=== PATIENT | female | born 1995 | race Caucasian/White ===

== ENCOUNTER 2017-05-29 14:09 | Outpatient (CLI) | payer MEDICAID ==
[2017-05-29 14:48] LABS: BILIRUBIN,URINE NEGATIVE (NEGATIVE); PH,URINE 5.5 PH (5.0-7.5)
[2017-05-29 14:51] LABS: BASOPHILS # (AUTO) 0.1 10^3/uL (0.0-0.1); BASOPHILS % (AUTO) 0.6 %; EOSINOPHILS % (AUTO) 0.4 %; HCT - HEMATOCRIT 38.8 % (37.0-47.0); HGB - HEMOGLOBIN 13.2 g/dL (12.0-16.0); LYMPHOCYTES # (AUTO) 1.6 10^3/uL (1.5-3.5); LYMPHOCYTES % (AUTO) 15.4 %; MEAN CORPUSCULAR HEMOGLOBIN 30.3 pg (27.0-31.0); MEAN CORPUSCULAR HGB CONC 33.9 g/dL (32.0-36.0); MEAN CORPUSCULAR VOLUME 89.3 fL (81.0-99.0); MONOCYTES # (AUTO) 0.5 10^3/uL (0.0-1.0); MONOCYTES % (AUTO) 4.6 %; NEUTROPHILS # (AUTO) 8.4 10^3/uL (1.5-6.6); RED BLOOD COUNT 4.34 10^6/uL (4.20-5.40); RED CELL DISTRIBUTION WIDTH 15.4 % (12.0-15.0); UNCORRECTED WHITE BLOOD COUNT 10.7 x10^3/uL; WHITE BLOOD COUNT 10.7 x10^3/uL (4.8-10.8)
[2017-05-29 15:15] LABS: WBC,URINE 0-3 /HPF (0-5)
== END 2017-05-29 14:10 | disposition home or self-care (01) ==
LOC: LAB 14:09
PROVIDERS: ATTEND Obstetrics & Gynecology
DX: Z36 Encounter for antenatal screening of mother (principal)
CPT/HCPCS: 36415; 81001; 85025; 86762; 86780; 86850; 86900; 86901; 87340; 87389

== ENCOUNTER 2017-08-14 12:23 | Outpatient (CLI) | payer MEDICAID ==
--- NOTE | 2017-08-14 16:16 | Ultrasound Report ---
OB ULTRASOUND: 08/14/2017 CLINICAL INDICATION: anatomy. TECHNIQUE: Real-time scanning was performed with insurance account representative static images obtained. LAST MENSTRUAL PERIOD 03/26/2017 Clinical Age 20 weeks 1 day US Age 20 weeks 4 days EFW Hadlock 357 g EFW% Hadlock 65% Heart Rate 157 bpm EDC 12/31/2017 US EDC 12/28/2017 BPD Hadlock 20 weeks 4 days; Mean mm 48.2 HC Hadlock 20 weeks 3 days; Mean mm 180.0 AC Hadlock 20 weeks 1 day; Mean mm 149.0 FL Hadlock 20 weeks 6 days; Mean mm 34.5 Presentation --- Placental Location posterior Cervical Length 4.0 cm Amniotic Fluid 5.0 cm FINDINGS: There is a single viable intrauterine gestation, in cephalic presentation. heart rate is 157 BPM. Amniotic fluid volume appears normal. The placenta is posterior, and there is either a marginal or velamentous cord insertion present. This should be reevaluated in the third trimester. By size, the fetus measures 20 weeks 3 days (20 weeks 1 day by LMP). The following anatomic structures were visualized and appear normal: The intracranial contents, including the ventricles and posterior fossa; the lips and orbits; the spine; the heart, including 4 chamber view and outflow tracts, and diaphragm; the abdominal contents, including the stomach, the bilateral kidneys, and urinary bladder, as well as a normal 3 vessel cord insertion; 4 limbs. There is a possible bicornuate configuration of the uterus, with a possible compressed horn seen in the left side of the uterus. The ovaries appear unremarkable. No free fluid is present. IMPRESSION 1. SINGLE VIABLE INTRAUTERINE GESTATION, WITH SIZE IN KEEPING WITH LMP DATING. NORMAL ANATOMIC SURVEY. 2. POSSIBLE MARGINAL OR VELAMENTOUS CORD INSERTION. THIS SHOULD BE REEVALUATED IN THE THIRD TRIMESTER. 3. POSSIBLE BICORNUATE UTERUS, WITH A COMPRESSED ENDOMETRIAL HORN SEEN ON THE LEFT SIDE OF THE UTERUS. MTDD
== END 2017-08-14 12:24 | disposition home or self-care (01) ==
LOC: DI 12:23
PROVIDERS: ATTEND Obstetrics & Gynecology
DX: Z36 Encounter for antenatal screening of mother (principal)
CPT/HCPCS: 76811

== ENCOUNTER 2017-11-17 14:26 | Outpatient (CLI) | payer MEDICAID ==
--- NOTE | 2017-11-20 17:22 | Ultrasound Report ---
EXAM: FOLLOW-UP OBSTETRICAL ULTRASOUND EXAM DATE: 11/17/2017 04:15 PM. CLINICAL HISTORY: History of marginal or velamentous cord insertion. GIANCARLO 12/31/2017 (34-4/7 weeks). COMPARISON: 08/14/2017. TECHNIQUE: Real-time sonographic evaluation of the fetus performed by the patient insurance clerk. Multiple repre sentative static images were saved for review. DATING: Established EGA 34-4/7 weeks with GIANCARLO 12/31/2017 based on LMP. EGA 34-1/7 weeks with GIANCARLO 12/28/2017 based on prior ultrasound. EGA 32-3/7 weeks with GIANCARLO 01/09/2018 based on the current ultrasound. GENERAL EVALUATION Stein . Cardiac activity: 142 bpm. movement: Visualized. Presentation: Cephalic. Placenta: Posterior. Unchanged probable superior marginal than velamentous cord insertion, grossly un changed. Amniotic fluid: Normal. KEYONNA 13.6 cm (MVP 4.2). BIOMETRY Bi-Parietal Diameter (BPD): 8.0 cm, 32-1/7 weeks. Head Circumference (HC): 28.9 cm, 31-6/7 weeks. Abdominal Circumference (AC): 29.2 cm, 33-2/7 weeks. Femur Length (FL): 6.3 cm, 32-6/7 weeks. Current composite sonographic age: 32-3/7 weeks, GIANCARLO 01/09/2018. Expected gestational age on established GIANCARLO: 34-4/7 weeks, GIANCARLO 12/31/2017. Estimated Weight: 2075 gm, 38.9th percentile for 34-4/7 weeks. ANATOMY Not specifically evaluated on this exam. No gross anatomic abnormality evident. MATERNAL STRUCTURES Cervix: Long and closed. Transabdominal length 4.2 cm. IMPRESSION: 1. Live stein with current composite sonographic age of 32-3/7 weeks, compared to expec christina gestational age of 34-4/7 weeks based on established GIANCARLO of 12/31/2017. 2. size is within normal limits, EFW at the 39th percentile. 3. Posterior placenta with similar probable superior marginal (than velamentous) cord insertion. TALA Referring Provider Line: [phone] SITE ID: [id number]
== END 2017-11-17 14:27 | disposition home or self-care (01) ==
LOC: DI 14:26
PROVIDERS: ATTEND Obstetrics & Gynecology
DX: Z36.2 Encounter for other antenatal screening follow-up (principal)
CPT/HCPCS: 76816

== ENCOUNTER 2017-12-06 15:10 | Outpatient (CLI) | payer MEDICAID | END 2017-12-06 15:11 | disposition home or self-care (01) | LOC: LAB.R 15:10 | PROVIDERS: ATTEND Obstetrics & Gynecology | DX: Z36.85 Encounter for antenatal screening for Streptococcus B (principal) | CPT/HCPCS: 87797 ==

== ENCOUNTER 2017-12-07 08:54 | Outpatient (CLI) | payer MEDICAID ==
[2017-12-07 09:15] VITALS: BP 124/80
== END 2017-12-07 10:35 | disposition home or self-care (01) ==
LOC: WFO 08:54 → FBP 08:55 → WFO 10:35
PROVIDERS: ATTEND Obstetrics & Gynecology
DX: Z34.03 Encounter for supervision of normal first pregnancy, third trimester (principal)
CPT/HCPCS: 99213

== ENCOUNTER 2017-12-23 21:40 | Outpatient (CLI) | payer MEDICAID ==
[2017-12-23 22:14] VITALS: BP 130/84
== END 2017-12-23 22:45 | disposition home or self-care (01) ==
LOC: WFO 21:40 → FBP 21:41 → WFO 22:45
PROVIDERS: ATTEND Obstetrics & Gynecology
DX: O47.1 False labor at or after 37 completed weeks of gestation (principal); Z3A.39 39 weeks gestation of pregnancy
CPT/HCPCS: 99212

== ENCOUNTER 2017-12-24 02:06 | Inpatient (IN) | payer MEDICAID ==
[2017-12-24] MEDS ORDERED: PENICILLIN G POTASSIUM 5,000,000 UNIT in SODIUM CHLORIDE 0.9% MINIBAG 100 ML IV ONE (03:36)
[2017-12-24] MEDS ORDERED: SODIUM CHLORIDE FLUSH 0.9% 10 ML SYRINGE IVP PRN (03:36)
[2017-12-24] MEDS ORDERED: ONDANSETRON 4 MG/2 ML VIAL IVP PRN (03:36)
[2017-12-24] MEDS ORDERED: OXYTOCIN/SODIUM CHLORIDE 250 ML IV ONE ×2 (03:57→05:45)
[2017-12-24] MEDS ORDERED: LACTATED RINGERS 1,000 ML IV SCH (04:00)
[2017-12-24 04:31] LABS: BASOPHILS # (AUTO) 0.1 10^3/uL (0.0-0.1); BASOPHILS % (AUTO) 0.4 %; EOSINOPHILS # (AUTO) 0.1 10^3/uL (0.0-0.7); EOSINOPHILS % (AUTO) 0.4 %; HGB - HEMOGLOBIN 11.1 g/dL (12.0-16.0); LYMPHOCYTES # (AUTO) 1.4 10^3/uL (1.5-3.5); LYMPHOCYTES % (AUTO) 8.3 %; MEAN CORPUSCULAR HEMOGLOBIN 28.1 pg (27.0-31.0); MEAN CORPUSCULAR HGB CONC 33.9 g/dL (32.0-36.0); MEAN CORPUSCULAR VOLUME 82.8 fL (81.0-99.0); MEAN PLATELET VOLUME 8.4 fL (7.9-10.8); MONOCYTES # (AUTO) 0.6 10^3/uL (0.0-1.0); MONOCYTES % (AUTO) 3.6 %; NEUTROPHILS # (AUTO) 15.1 10^3/uL (1.5-6.6); NEUTROPHILS % (AUTO) 87.3 %; PLT - PLATELET COUNT 335 10^3/uL (130-450); RED BLOOD COUNT 3.96 10^6/uL (4.20-5.40); RED CELL DISTRIBUTION WIDTH 14.2 % (12.0-15.0); WHITE BLOOD COUNT 17.2 x10^3/uL (4.8-10.8)
[2017-12-24] MEDS: fentaNYL 100 MCG/2 ML VIAL IVP PRN ×2 (04:39→05:31)
[2017-12-24] MEDS: LACTATED RINGERS 1,000 ML IV SCH (05:00)
[2017-12-24] MEDS ORDERED: fentaNYL 100 MCG/2 ML VIAL IVP ONE (05:30)
[2017-12-24] MEDS ORDERED: LIDOCAINE 1% 50 ML MDV ONE (05:42)
[2017-12-24] MEDS ORDERED: HYDROcod/ACETAM 5/325 MG TABLET PO PRN (05:45)
[2017-12-24] MEDS ORDERED: diphenhydrAMINE 25 MG CAPSULE PO PRN (05:45)
[2017-12-24] MEDS ORDERED: WITCH HAZEL/GLYCERIN 1 EACH MED..PAD TOP PRN (05:45)
[2017-12-24] MEDS ORDERED: HYDROCORTISONE/PRAMOXINE 10 GM PR PRN (05:45)
[2017-12-24] MEDS ORDERED: ZOLPIDEM 5 MG TABLET PO PRN (05:45)
[2017-12-24] MEDS ORDERED: LIDOCAINE 1% 50 ML MDV TD ONE (05:45)
--- NOTE | 2017-12-24 05:50 | DELIVERY NOTE ---
Delivery Note - Labor Labor: positive: Spontaneous - Delivery Method Delivery Method: positive: Spontaneous vaginal delivery - Presentation Presentation: positive: Vertex - Nuchal Cord Nuchal Cord: positive: Present - Anesthetic Anesthetic Type: Anesthetic: positive: Lidocaine - 1% plain Volume: positive: 5cc - Amniotic Fluid Description Amniotic Fluid Description: positive: Clear - Episiotomy Type Episiotomy Type: positive: None - Laceration Laceration: positive: 2nd degree - Suture Suture Type: positive: Vicryl Suture Size: positive: 3-0 - Delivery Outcome Delivery Outcome: positive: Livebirth - Broussard : positive: Bulb syringe, Stimulated, Warmed sex: positive: Female - Cord Cord: positive: 3 vessels - Placenta Placenta: positive: Intact, Manual removal, Other (Marginal Cord Insert, Small Placenta) - Post Delivery Events Post Delivery Events: positive: No post delivery events - Delivery Comments (Free Text/Narrative) Delivery Comments (Free Text/Narrative): Living Female wgt 6 lbs 3.4oz & Apgars 8/9
[2017-12-24] MEDS ORDERED: IBUPROFEN 600 MG TABLET PO SCH (06:00)
--- NOTE | 2017-12-24 07:21 | HISTORY & PHYSICAL EXAMINATION ---
DATE OF SERVICE: 12/24/2017 Physician: Xavi Acuna MD DATE OF ADMISSION: 12/24/2017 HISTORY OF PRESENT ILLNESS: The patient is a 22-year-old , primigravida at 38 weeks and 6 days gestation, who presents with suspicion of leaking membranes. Initial examination confirms ruptured membranes with a cervix of 3 cm and 80% effaced, -1 station. Amniotic fluid was noted as clear. Membrane rupture occurred at roughly 3 a.m. She had previously been seen earlier in the evening for suspected labor. She is GBS positive. The is remarkable for known velamentous cord insertion and bicornuate uterus. LABORATORY: Blood type of Rh positive, rubella immune, RPR negative, hep B negative, HIV negative. Glucola challenge test normal. GBS positive. PAST MEDICAL HISTORY: No chronic disease history. PAST SURGICAL HISTORY: No surgical history. ALLERGIES: NONE. MEDICATIONS: vitamins with iron. FAMILY HISTORY: No inheritable diseases, chromosome anomalies, or defects. SOCIAL HISTORY: Unmarried, stable relationship. No drug, tobacco or alcohol use. REVIEW OF SYSTEMS CONSTITUTIONAL: Negative. HEENT: Negative. CARDIAC: Negative. LUNGS: Negative. BREASTS: Negative. GI: Negative. : Negative. Reference history as well. MUSCULOSKELETAL: Negative. NEURO: Negative. DERMATOLOGIC: Negative. PHYSICAL EXAMINATION GENERAL: The patient uncomfortable with labor pains. HEENT: Moist membranes. NECK: Supple. No thyromegaly. LUNGS: Clear to auscultation. CARDIOVASCULAR: Regular. No murmur. No gallop. BREASTS: No mass, full. ABDOMEN: No organomegaly. No tenderness. UTERUS: Consistent size, palpable moderate contractions every 2-3 minutes. EXTERNAL HEART TRACING: Category 1, however, there are occasional early decels and variable. EXTERNAL GENITALIA: No lesions. CERVIX: 3 cm, 80%, -1 to 0. EXTREMITIES: Nonedematous. Range of motion normal x4. NEUROLOGIC: Grossly intact. SKIN: No obvious rash. Decorative tattoos. LABORATORY DATA: Hemoglobin 11.1, white count 17.2, platelets 335. ASSESSMENT: This is a term in latent phase of labor. Evident rupture of membranes and GBS positive. There are some concerns about cord implantation and the length of the cord. PLAN 1. Bolus IV fluids and prepare for epidural. Epidural will help control the delivery. 2. Begin GBS prophylaxis. 3. Depending on delivery events, cord may need to be clamped and cut on the perineum. Patient has marginal cord insertion; however, there are no concerning changes on the heart tracing. TD: 12/24/2017 07:17 MTDAureliano
[2017-12-24] MEDS: SODIUM CHLORIDE FLUSH 0.9% 10 ML SYRINGE IVP SCH ×2 (07:37→13:14)
[2017-12-24] MEDS: IBUPROFEN 100 MG/5 ML UDC PO PRN ×2 (08:19→16:37)
[2017-12-24] MEDS: DOCUSATE SODIUM 100 MG CAPSULE PO SCH (08:19)
[2017-12-24] MEDS: ACETAMINOPHEN 325 MG TABLET PO SCH ×2 (08:35→15:21)
[2017-12-25] MEDS: IBUPROFEN 100 MG/5 ML UDC PO PRN ×4 (00:28→20:57)
[2017-12-25] MEDS: DOCUSATE SODIUM 100 MG CAPSULE PO SCH ×3 (00:29→20:57)
[2017-12-25] MEDS: LACTATED RINGERS 1,000 ML IV SCH ×3 (20:55→21:08)
[2017-12-25] MEDS: SODIUM CHLORIDE FLUSH 0.9% 10 ML SYRINGE IVP SCH ×3 (20:56→21:08)
[2017-12-25] MEDS: ACETAMINOPHEN 325 MG TABLET PO SCH ×5 (21:05→21:15)
[2017-12-26] MEDS: SODIUM CHLORIDE FLUSH 0.9% 10 ML SYRINGE IVP SCH ×2 (01:27→07:06)
[2017-12-26] MEDS: LACTATED RINGERS 1,000 ML IV SCH (01:27)
[2017-12-26] MEDS: IBUPROFEN 100 MG/5 ML UDC PO PRN ×2 (03:00→08:16)
[2017-12-26] MEDS: ACETAMINOPHEN 325 MG TABLET PO SCH (04:07)
[2017-12-26] MEDS: DOCUSATE SODIUM 100 MG CAPSULE PO SCH (08:16)
[2017-12-26 08:52] VITALS: BP 118/76
--- NOTE | 2017-12-26 09:02 | PROCEDURE REPORT ---
DATE OF SERVICE: Physician: Xavi Acuna MD DATE OF PROCEDURE: 12/24/2017 PREDELIVERY DIAGNOSES 1. Spontaneous labor with ruptured membranes. 2. Term at 38 weeks. 3. Group B strep positive. 4. Velamentous cord insertion. 5. Bicornuate uterus. POSTDELIVERY DIAGNOSES 1. Spontaneous labor with ruptured membranes. 2. Term at 38 weeks. 3. Group B strep positive. 4. Velamentous cord insertion. 5. Bicornuate uterus. 6. Nuchal cord and marginal cord insertion. 7. Rapid labor. PROCEDURE: Manual assisted vaginal delivery over intact perineum with minor midline laceration repair. BRICKLAYER APPRENTICE: Xavi Acuna MD, FACOG, [facility] COMPLICATIONS: None. ESTIMATED BLOOD LOSS: 250-300. DRAINS: None. FINDINGS: At 0512 hours, a living female infant was born weighing 6 pounds and 3 ounces, scoring Apgars of 6 and 9. There were no obvious congenital anomalies or trauma. The placenta was delivered by manual extraction due to the cord spontaneously severing after . The placenta was delivered intact. The cord was a 3-vessel orientation and wrapped tightly around the head x1. The cord was of a normal length. There is no evidence of abruption, infection, or meconium. Inspection of the female genital tract finds the cervix intact and the vulva intact. There is a shallow midline laceration in the vagina for a distance of 3 cm, grade 2. TECHNIQUE: Patient rapidly advanced from 3 cm to complete by 5 a.m. Patient began to involuntarily push and the head moved towards . There was a controlled delivery of the head using push and stretch technique. Patient was cooperative. The shoulders were delivered without difficulty, and the cord was not short as previously suspected on ultrasound. The was placed on the maternal abdomen for warming. After the cord stopped pulsations, it was doubly clamped and transected. Cord blood sample was sent. We waited for the placenta and there was extension of the cord, but none of the usual arising of the uterus in the abdomen. It became evident that the marginal cord had severed and was stuck within the membranes. A 100 mcg of fentanyl were given to help the patient relax. The six color press operator inserted his left hand, located the placenta and through gentle finger curettage, was able to separate it from the uterine wall and extract it intact. This procedure was well tolerated. After delivery, the genital tract was inspected and a 3 cm shallow midline vaginal laceration was discovered. We injected 5 mL of lidocaine 1% and the laceration uneventfully closed with 3-0 Vicryl. Mother, father, and baby all bonded well. Patient immediately began to nurse without difficulty. At termination of the procedure, all sponge, needle and instrument counts were confirmed as correct. TD: 12/24/2017 06:38 [facility]
--- NOTE | 2017-12-26 09:23 | Discharge Plan ---
Discharge Plan Disposition: 01 Home, Self Care Condition: Good Diet: Regular Shower Restrictions: No Driving Restrictions: No No Smoking: If you smoke, Please STOP! Call for help. Follow-up with: Xavi Acuna MD [Provider Admit Priv/Credential] -
--- NOTE | 2017-12-26 11:26 | Labor Flowsheet ---
Labor Flowsheet Datetime Report Generated by CPN: 12/26/2017 11:26 Datetime: 12/25/2017 10:13 Pulse: 104 SpO2 (%): 99 LaborFlag: Labor Datetime: 12/25/2017 10:06 VITAL SIGNS NBP Sys/Liza/Mean (mmHg): 107 : 65 : 79 Datetime: 12/24/2017 08:01 COMMUNICATION Communication: this patient is not Gladis Crispin. Wrongly recording under her name. Datetime: 12/24/2017 05:05 UTERINE ACTIVITY Monitor Mode: External Frequency (min): 2 Quality: Strong (Annotations: pushing involuntarily, unable to pant through them. head visible with contractions.) Duration (sec): 90 Pattern: Normal: <= 5 Contractions in 10 Minutes Resting Tone (Palpate): Relaxed ASSESSMENT A Monitor Mode: External US FHR Baseline Rate : 140 FHR Baseline Changes: No Baseline Change Variability: Moderate 6-25 bpm Accelerations: 15X15 Decelerations: Variable Category: Category II VAGINAL EXAM Dilatation (cm): 10.0 Effacement (%): 100 Station: 3 Exam by: [email or web address] (Annotations: pushing involuntarily, enc to pant/breathe through contraction s. repositioned to left side and hob lowered. ) Datetime: 12/24/2017 04:50 Monitor Interventions for UA: [place] Adjusted Actions for Decelerations: IV Bolus; Sterile Vaginal Exam (Annotations: o2 via mask) Datetime: 12/24/2017 04:35 Membranes Ruptured Date/Time: 12/24/2017 03:20 Membranes Rupture Method: Spontaneous Amniotic Fluid Color: Clear Amniotic Fluid Amount: Moderate Amniotic Fluid Odor: Normal Vaginal Bleeding: Normal Show Datetime: 12/24/2017 04:30 Stage of : Labor Datetime: 12/24/2017 04:00 Contraction Comments: pt breathing well through contractions
== END 2017-12-26 11:15 | disposition home or self-care (01) | DRG 775 ==
LOC: WFO 02:06 → FBP 02:07 → WFO 03:34 → FBP 03:36
PROVIDERS: ADMIT Obstetrics & Gynecology; ATTEND Obstetrics & Gynecology
PROC: 10E0XZZ Delivery of Products of Conception, External Approach (ICD-10-PCS; principal; 2017-12-24)
PROC: 0UQG7ZZ Repair Vagina, Via Natural or Artificial Opening (ICD-10-PCS; 2017-12-24)
DX: O34.03 Maternal care for unspecified congenital malformation of uterus, third trimester (principal); O71.4 Obstetric high vaginal laceration alone; O43.123 Velamentous insertion of umbilical cord, third trimester; O99.824 Streptococcus B carrier state complicating childbirth; O62.3 Precipitate labor; O69.81X0 Labor and delivery complicated by cord around neck, without compression, not applicable or unspecified; Q51.3 Bicornate uterus; Z37.0 Single live birth; Z3A.38 38 weeks gestation of pregnancy
CPT/HCPCS: 85025; 99213

== ENCOUNTER 2019-12-02 09:02 | Outpatient (CLI) | payer MEDICAID | END 2019-12-02 09:03 | disposition EMS.NT | LOC: EMS 09:02 | PROVIDERS: ATTEND Surgery | DX: R00.0 Tachycardia, unspecified (principal); F41.9 Anxiety disorder, unspecified ==

== ENCOUNTER 2021-01-13 09:26 | Outpatient (CLI) | payer MEDICAID | END 2021-01-13 09:27 | disposition EMS.NT | LOC: EMS 09:26 | DX: R00.2 Palpitations (principal); F41.9 Anxiety disorder, unspecified ==

== ENCOUNTER 2021-02-08 08:00 | Outpatient (CLI) | payer MEDICAID ==
[2021-02-08 15:56] LABS: BILIRUBIN,URINE NEGATIVE (NEGATIVE); GLUCOSE, URINE (UA) NEGATIVE (NEGATIVE); KETONES,URINE (UA) NEGATIVE (NEGATIVE); LEUKOCYTE ESTERASE, URINE TRACE (NEGATIVE); NITRITE,URINE NEGATIVE (NEGATIVE); OCCULT BLOOD,URINE NEGATIVE (NEGATIVE); PH,URINE 6.5 PH (5.0-7.5); PROTEIN,URINE NEGATIVE (NEGATIVE); UROBILINOGEN,URINE 0.2 (NORMAL) E.U./dL (NORMAL)
[2021-02-08 15:57] LABS: CLARITY,URINE CLEAR (CLEAR)
[2021-02-08 16:11] LABS: BACTERIA,URINE Rare /HPF (None Seen); RBC,URINE None Seen /HPF (0-5); SQUAMOUS EPITHELIAL CELL,UR FEW Squamous (<= Few); WBC,URINE 0-3 /HPF (0-5)
== END 2021-02-08 23:59 | disposition home or self-care (01) ==
LOC: LAB.R 08:00
PROVIDERS: ATTEND Nurse Practitioner Obstetrics & Gynecology
DX: Z32.01 Encounter for pregnancy test, result positive (principal)
CPT/HCPCS: 81001; 87086

== ENCOUNTER 2021-02-15 14:49 | Outpatient (CLI) | payer MEDICAID ==
--- NOTE | 2021-02-16 17:16 | Ultrasound Report ---
PROCEDURE: OB First Trimester w/TV INDICATIONS: POSITIVE TEST OUTSIDE/PRIOR DATING DATA: Last menstrual period (LMP): 12/24/2020. LMP-based estimated date of delivery (GIANCARLO): 09/30/2021. First dating scan (date and location): 02/15/2021. Estimated date of delivery (GIANCARLO) from first dating scan: 09/24/2021. TECHNIQUE: Real-time scanning was performed of the fetus and maternal pelvic organs, with image documentation. Endovaginal scanning was also performed to better visualize the fetus and maternal ovaries. COMPARISON: None. FINDINGS: Embryo: Single living intrauterine gestation with an estimated sonographic gestational age of approx imately 8 weeks and 3 days based off crown-rump length measurement of approximately 1.9 cm. Estimated gestational age based off mean gestational sac diameter is approximately 8 weeks and 1 day. he art rate measured 177 bpm. Small bilateral uterine perigestational hemorrhages are noted. On the righ t it measures 1.6 x 1.1 x 2.5 cm. On the left it measures 1.6 x 0.6 x 2.3 cm. Normal yolk sac is seen . Measurement variability in dating: +/- 4 weeks by LMP, +/- 7 days by mean sac diameter (use before 6 weeks gestation if crown-rump length not able to be measured), +/- 5 days by crown-rump length (6-12 weeks gestation). Maternal organs: Ovaries demonstrates presence of a left corpus luteal cyst. There is appearance of bicornuate uterine morphology with the is noted within the left uterine horn. Cervical wesley th appears visibly adequate closed. Kidneys are unremarkable without evidence for hydronephrosis. . IMPRESSION: Single living intrauterine gestation with an estimated sonographic gestational age of approximately 8 weeks and 3 days. This correlates with an GIANCARLO of 09/24/2021. Bicornuate uterine morphology with the intrauterine visualized within the left uterine horn . Small bilateral perigestational hemorrhages. Reviewed by: Zach Nathan MD on 02/16/2021 5:15 PM PDT Approved by: Zach Nathan MD on 02/16/2021 5:15 PM PDT Station ID: [id number]
== END 2021-02-15 14:50 | disposition home or self-care (01) ==
LOC: DI 14:49
PROVIDERS: ATTEND Advanced Practice Midwife
DX: O20.8 Other hemorrhage in early pregnancy (principal); Z3A.08 8 weeks gestation of pregnancy

== ENCOUNTER 2021-03-22 10:23 | Outpatient (CLI) | payer MEDICAID ==
[2021-03-22 11:17] LABS: BASOPHILS % (AUTO) 0.4 %; EOSINOPHILS # (AUTO) 0.1 10^3/uL (0.0-0.7); HGB - HEMOGLOBIN 11.5 g/dL (12.0-16.0); LYMPHOCYTES # (AUTO) 1.8 10^3/uL (1.5-3.5); LYMPHOCYTES % (AUTO) 25.4 %; MEAN CORPUSCULAR HEMOGLOBIN 30.2 pg (27.0-31.0); MEAN CORPUSCULAR HGB CONC 33.8 g/dL (32.0-36.0); MEAN CORPUSCULAR VOLUME 89.2 fL (81.0-99.0); MONOCYTES # (AUTO) 0.3 10^3/uL (0.0-1.0); MONOCYTES % (AUTO) 4.9 %; NEUTROPHILS # (AUTO) 4.7 10^3/uL (1.5-6.6); NEUTROPHILS % (AUTO) 67.9 %; PLT - PLATELET COUNT 252 10^3/uL (130-450); RED BLOOD COUNT 3.81 10^6/uL (4.20-5.40); RED CELL DISTRIBUTION WIDTH 13.9 % (12.0-15.0)
[2021-03-23 12:32] LABS: HEPATITIS B SURFACE ANTIGEN NON-REACTIVE (NON-REACTIVE)
[2021-03-23 12:46] LABS: HEPATITIS C ANTIBODY NON-REACTIVE (NON-REACTIVE)
[2021-03-23 15:06] LABS: HIV AG/AB 4TH GEN NON-REACTIVE (NON-REACTIVE)
== END 2021-03-22 10:24 | disposition home or self-care (01) ==
LOC: LAB 10:23
PROVIDERS: ATTEND Advanced Practice Midwife
DX: Z34.90 Encounter for supervision of normal pregnancy, unspecified, unspecified trimester (principal); Z36.89 Encounter for other specified antenatal screening
CPT/HCPCS: 36415; 85025; 86592; 86762; 86787; 86803; 86850; 86900; 86901; 87340; 87389

== ENCOUNTER 2021-05-07 13:43 | Outpatient (CLI) | payer MEDICAID ==
--- NOTE | 2021-05-07 17:24 | Ultrasound Report ---
PROCEDURE: OB Detailed Eval INDICATIONS: SUPERVISION OF NORMAL OUTSIDE/PRIOR DATING DATA: Last menstrual period (LMP): 12/24/2020. LMP-based estimated date of delivery (GIANCARLO): 09/30/2021. First dating scan (date and location): 02/15/2021. Estimated date of delivery (GIANCARLO) from first dating scan: 09/24/2021. The below data below was generated using the first trimester ultrasound GIANCARLO of 09/24/2021 TECHNIQUE: Real-time scanning was performed of the fetus, with image documentation and biometric measurements. Endovaginal scanning: Not performed COMPARISON: 02/15/2021 FINDINGS: General: A single living intrauterine gestation is present. Presentation: Breech Placenta: Placental position is fundal, without previa. Amniotic fluid index: 13.6 cm, normal for gestational age. heart rate: 152 beats per minute. Maternal cervical canal: 3.6 cm long; normal length is 2.5 cm or more. biometrics: Biparietal diameter: 4.9 cm, 20 weeks, 5 days Head circumference: 17.6 cm, 20 weeks, 1 day Abdominal circumference: 16.0 cm, 21 weeks, 1 day Femur length: 3.1 cm, 19 weeks, 4 days Estimated gestational age from initial scan: 20 weeks, 0 days. Composite gestational age from present scan: 20 weeks, 2 days Estimated weight and percentile: 349 g, 67th percentile Measurement variability in biometric dating: +/- 10 days from 12-20 weeks gestation, +/- 2 weeks from 20-30 weeks gestation, +/- 3 weeks at 30 weeks gestation or later. Anatomic survey: Neuro: Ventricles are normal at less than 10 mm. Cisterna magna is normal at 3-11 mm. Cerebellum i s normal in size and morphology. Nuchal skin fold: Normal at less than 6 mm between 14 and 20 weeks gestational age. Face: Nose and lips, facial profile are normal. Spine: No evidence for spina bifida. Heart: 4-chambered heart is present, with normal ventricular outflow tracts. Diaphragm: Diaphragm is intact. Stomach: Left-sided stomach is present. Kidneys: No hydronephrosis. Normal is less than 5 mm in 2nd trimester, less than 7 mm in 3rd trimester. Cord: 3 vessel cord has orthotopic insertion. There is a marginal cord insertion is seen posterior and right along the placental edge. Bladder: Normal in size. Extremities: All 4 extremities are visualized. IMPRESSION: 1. Single live intrauterine with appropriate growth since the prior study. 2. Normal anatomy. 3. Marginal placental cord insertion. Follow-up suggested in third trimester. Reviewed by: Tiffany Mendez MD on 05/07/2021 5:23 PM PDT Approved by: Tiffany Mendez MD on 05/07/2021 5:23 PM PDT Station ID: [id number]
== END 2021-05-07 13:44 | disposition home or self-care (01) ==
LOC: DI 13:43
PROVIDERS: ATTEND Advanced Practice Midwife
DX: Z34.00 Encounter for supervision of normal first pregnancy, unspecified trimester (principal)

== ENCOUNTER 2021-06-23 09:06 | Outpatient (CLI) | payer MEDICAID ==
[2021-06-23 10:53] LABS: HCT - HEMATOCRIT 32.5 % (37.0-47.0); HGB - HEMOGLOBIN 10.5 g/dL (12.0-16.0); MEAN CORPUSCULAR HEMOGLOBIN 29.7 pg (27.0-31.0); MEAN CORPUSCULAR HGB CONC 32.3 g/dL (32.0-36.0); MEAN CORPUSCULAR VOLUME 91.8 fL (81.0-99.0); MEAN PLATELET VOLUME 9.1 fL (7.9-10.8); RED BLOOD COUNT 3.54 10^6/uL (4.20-5.40); RED CELL DISTRIBUTION WIDTH 12.9 % (12.0-15.0); WHITE BLOOD COUNT 11.4 x10^3/uL (4.8-10.8)
== END 2021-06-23 09:07 | disposition home or self-care (01) ==
LOC: LAB 09:06
PROVIDERS: ATTEND Nurse Practitioner Obstetrics & Gynecology
DX: Z34.90 Encounter for supervision of normal pregnancy, unspecified, unspecified trimester (principal); Z36.89 Encounter for other specified antenatal screening
CPT/HCPCS: 36415; 82950; 85027

== ENCOUNTER 2021-07-07 09:33 | Outpatient (CLI) | payer MEDICAID ==
[2021-07-07 11:04] VITALS: BP 114/66
--- NOTE | 2021-07-07 17:51 | PROCEDURE REPORT ---
- HPI Current EDU 09/24/21 Gestation 28 Weeks and 5 Days 2 Para 1 Vital Signs Temperature 37.2 C 07/07/21 09:48 Heart Rate 97 07/07/21 09:48 Respiratory Rate 20 07/07/21 09:48 Blood Pressure 114/66 07/07/21 09:48 O2 Saturation 100 07/07/21 09:48 Temperature 37.2 C 07/07/21 09:48 Heart Rate 97 07/07/21 09:48 Respiratory Rate 20 07/07/21 09:48 Blood Pressure 114/66 07/07/21 09:48 O2 Saturation 100 07/07/21 09:48 - NST Procedure NST Procedure Start Date 07/07/21 Start Time 09:41 Stop Time 10:07 Vibroacoustic Stimulation Used No - Results and Plan Findings/Impression: Gladis presents to [facility] for NST secondary to elevated heart rate of 177bpm in the office at routine visit. NST performed 07/07/2021 NST read 07/07/2021 NST reactive. FHR baseline 145, moderate variability, + accels, no decels Encouraged pt to increase fluid intake. Pt verbalized understanding and agrees to above plan. She denies further questions or concerns at this time. FINAL DIAGNOSIS: tachycardia - resolved.
== END 2021-07-07 10:15 | disposition home or self-care (01) ==
LOC: WFO 09:33 → FBP 09:37 → WFO 10:15
PROVIDERS: ATTEND Nurse Practitioner Obstetrics & Gynecology
DX: O36.8330 Maternal care for abnormalities of the fetal heart rate or rhythm, third trimester, not applicable or unspecified (principal); Z3A.28 28 weeks gestation of pregnancy
CPT/HCPCS: 59025

== ENCOUNTER 2021-07-18 08:24 | Outpatient (CLI) | payer MEDICAID ==
--- NOTE | 2021-07-18 15:05 | Ultrasound Report ---
PROCEDURE: OB F/U or Repeat INDICATIONS: SUPERVISION OF OUTSIDE/PRIOR DATING DATA: Last menstrual period (LMP): 12/24/2020. LMP-based estimated date of delivery (GIANCARLO): 09/30/2021. First dating scan (date): 02/15/2021 Estimated date of delivery (GIANCARLO) from first dating scan: 09/24/2021. The below data below was generated using the first trimester scan GIANCARLO of 09/24/2021 TECHNIQUE: Real-time scanning was performed of the fetus, with image documentation and biometric measurements. Endovaginal scanning: Not performed COMPARISON: None. FINDINGS: General: A single living intrauterine gestation is present. Presentation: Breech Placenta: Placental position is anterior fundal, without previa. Placental insertion of the umbilic al cord is along the superior margin approximately 2.2 cm from its edge. Amniotic fluid index: 15.2 cm heart rate: 147 beats per minute. Maternal cervical canal: 4.9 cm long; normal length is 2.5 cm or more. Other findings: Maternal ovaries are seen and appear within normal limits. Corpus luteum follicle is seen in the left ovary. IMPRESSION: 1. Eccentric insertion of the umbilical cord into the placenta approximately 2.2 cm from its margin. 2. Single living intrauterine with heart rate of 147 bpm. 3. Breech orientation. Reviewed by: Viral López on 07/18/2021 2:03 PM KATHLEEN Approved by: Viral López on 07/18/2021 2:03 PM KATHLEEN Station ID: [id number]
== END 2021-07-18 08:25 | disposition home or self-care (01) ==
LOC: DI 08:24
PROVIDERS: ATTEND Advanced Practice Midwife
DX: O43.199 Other malformation of placenta, unspecified trimester (principal); O32.1XX0 Maternal care for breech presentation, not applicable or unspecified; Z3A.00 Weeks of gestation of pregnancy not specified

== ENCOUNTER 2021-07-18 09:11 | Emergency (ER) | payer MEDICAID ==
[2021-07-18 09:18] VITALS: BP 116/66
--- NOTE | 2021-07-18 09:20 | ED Physician Documentation ---
PD HPI SKIN - Stated complaint Stated Complaint: ITCHINESS - Chief complaint Chief Complaint: General - History obtained from History obtained from: Patient - History of Present Illness Timing - onset: How many days ago (2-3) Timing - duration: Days (2-3) Timing - details: Gradual onset, Still present Location: Bodywide Quality / character: Itchy, Other (no palpable lesions. DIffuse itching.). No: Discolored, Raised Associated symptoms: No: Fever, Myalgias, N/V/D Contributing factors: No: Exposed to medication, Exposed to food, Exposed to soap / lotion, Recent illness Similar symptoms before: Has not had sx before Recently seen: Clinic (she had normal exam recently. She is 30 weeks with normal progress so far.) Review of Systems Constitutional: denies: Fever, Chills Nose: denies: Rhinorrhea / runny nose, Congestion Throat: denies: Sore throat Respiratory: denies: Cough GI: denies: Abdominal Pain, Nausea, Vomiting : reports: Now EGA (30 weeks). denies: Dysuria, Frequency, Vaginal bleeding Skin: denies: Rash (but is diffusely itchy) PD PAST MEDICAL HISTORY - Past Medical History Cardiovascular: None Respiratory: None Neuro: None Endocrine/Autoimmune: None Derm: None - Present Medications Home Medications: Ambulatory Orders Medication Instructions Recorded Confirmed Cetirizine [ZyrTEC] 10 mg PO BID #15 tablet 07/18/21 Ferrous Sulfate 300 mg PO DAILY 07/18/21 07/18/21 - Allergies Allergies/Adverse Reactions: Allergies Allergy/AdvReac Type Severity Reaction Status Date / Time No Known Drug Allergies Allergy Verified 07/18/21 09:18 - Social History Smoking Status: Never smoker PD ED PE NORMAL - Vitals Vital signs reviewed: Yes - General General: Alert and oriented X 3, No acute distress (seems bothered by itching though), Well developed/nourished - HEENT HEENT: Pharynx benign - Neck Neck: Supple, no meningeal sign, No adenopathy - Cardiac Cardiac: RRR, No murmur - Respiratory Respiratory: Clear bilaterally - Abdomen Abdomen: Other (, with fundus mid between umbilicus and xyphoid, c/w dates. Not tender. ) - Derm Derm: Normal color, Warm and dry, No rash - Extremities Extremities: No edema, No calf tenderness / cord - Neuro Neuro: Alert and oriented X 3, No motor deficit, Normal speech Results - Vitals Vitals: Vital Signs - 24 hr 07/18/21 09:13 Temperature 36.6 C Heart Rate 96 Respiratory 16 Rate Blood Pressure 116/66 O2 Saturation 100 Oxygen O2 Source Room air - Labs Labs: Laboratory Tests 07/18/21 07/18/21 07/18/21 10:06 10:06 10:22 WBC 12.3 H RBC 3.45 L Hgb 10.3 L Hct 32.1 L MCV 93.0 MCH 29.9 MCHC 32.1 RDW 15.0 Plt Count 269 MPV 9.0 Neut # (Auto) 9.7 H Lymph # (Auto) 1.4 L [place] # (Auto) 0.7 Eos # (Auto) 0.1 Baso # (Auto) 0.1 Absolute Nucleated RBC 0.00 Nucleated RBC % 0.0 Sodium 135 Potassium 3.7 Chloride 103 Carbon Dioxide 23 Anion Gap 9.0 BUN 6 Creatinine 0.5 Estimated GFR (MDRD) 149 Glucose 101 H Calcium 8.7 Total Bilirubin 0.4 AST 13 ALT < 10 L Alkaline Phosphatase 72 Total Protein 7.4 Albumin 3.5 Globulin 3.9 Albumin/Globulin Ratio 0.9 L Lipase 28 TSH 3.22 PD MEDICAL DECISION MAKING - ED course Complexity details: reviewed results (normal LFTs and Creatinine. Bile Acids is sendout, so will take 2-3 days. ), considered differential (Bile aicds or elevated bili, creatinine versus allergic reaction or contact dermatitis. But no hives nor rash.), d/w patient, d/w internet consultant (Dr. Carrillo, BOILERMAKER FITTER, who asks for pt to go to OB after ER.) Departure - Departure Disposition: Home, Self Care Clinical Impression: Generalized pruritus Condition: Stable Record reviewed to determine appropriate education?: Yes Follow-Up: Shahla West, PEREZ, SHIFT MECHANIC [Provider Admit Priv/Credential] - Prescriptions: Cetirizine [ZyrTEC] 10 mg PO BID #15 tablet Comments: Liver and kidney function tests are normal here. Shahla Wick is on the OB unit right now and would like to see you there and do a monitor strip of your as well. Go from the ER to OB to be checked by them as well Consider use of an antihistamine such as cetirizine twice daily for the next week presuming more of an allergy type itching. Discussed with Ms. Ocampo if short course steroids would be appropriate as well. Discharge Date/Time: 07/18/21 10:56
[2021-07-18] MEDS ORDERED: diphenhydrAMINE ELIXIR 25 MG/10 ML UDC PO STA (09:40)
[2021-07-18] MEDS ORDERED: CETIRIZINE 10 MG TABLET PO STA (09:40)
[2021-07-18 10:27] LABS: ALBUMIN 3.5 g/dL (3.2-5.5); ALBUMIN/GLOBULIN RATIO 0.9 (1.0-2.2); ALKALINE PHOSPHATASE 72 IU/L (42-121); ALT ALANINE AMINOTRANSFERASE < 10 IU/L (10-60); AST ASPARTATE AMINOTRANSFERASE 13 IU/L (10-42); BILIRUBIN,TOTAL 0.4 mg/dL (0.2-1.0); BUN - BLOOD UREA NITROGEN 6 mg/dL (6-20); CALCIUM 8.7 mg/dL (8.5-10.3); CARBON DIOXIDE - CO2 23 mmol/L (21-32); CHLORIDE 103 mmol/L (101-111); CREATININE 0.5 mg/dL (0.4-1.0); GFR - MDRD 149 (>89); GLUCOSE 101 mg/dL (70-100); LIPASE 28 U/L (22-51); POTASSIUM 3.7 mmol/L (3.5-5.0); SODIUM 135 mmol/L (135-145); TOTAL PROTEIN 7.4 g/dL (6.7-8.2)
[2021-07-18 10:27] LABS: BASOPHILS # (AUTO) 0.1 10^3/uL (0.0-0.1); BASOPHILS % (AUTO) 0.5 %; EOSINOPHILS # (AUTO) 0.1 10^3/uL (0.0-0.7); EOSINOPHILS % (AUTO) 0.9 %; HCT - HEMATOCRIT 32.1 % (37.0-47.0); HGB - HEMOGLOBIN 10.3 g/dL (12.0-16.0); LYMPHOCYTES # (AUTO) 1.4 10^3/uL (1.5-3.5); LYMPHOCYTES % (AUTO) 11.7 %; MEAN CORPUSCULAR HEMOGLOBIN 29.9 pg (27.0-31.0); MEAN CORPUSCULAR HGB CONC 32.1 g/dL (32.0-36.0); MONOCYTES # (AUTO) 0.7 10^3/uL (0.0-1.0); MONOCYTES % (AUTO) 5.6 %; NEUTROPHILS # (AUTO) 9.7 10^3/uL (1.5-6.6); NEUTROPHILS % (AUTO) 79.2 %; PLT - PLATELET COUNT 269 10^3/uL (130-450); RED BLOOD COUNT 3.45 10^6/uL (4.20-5.40); WHITE BLOOD COUNT 12.3 x10^3/uL (4.8-10.8)
== END 2021-07-18 10:56 | disposition home or self-care (01) ==
LOC: ED 09:11
DX: O26.893 Other specified pregnancy related conditions, third trimester (principal); O43.193 Other malformation of placenta, third trimester; O32.1XX0 Maternal care for breech presentation, not applicable or unspecified; Z3A.30 30 weeks gestation of pregnancy; O99.713 Diseases of the skin and subcutaneous tissue complicating pregnancy, third trimester; L29.9 Pruritus, unspecified
CPT/HCPCS: 36415; 59025; 76816; 80053; 82239; 83690; 84443; 85025; 99283; A9270; 99213

== ENCOUNTER 2021-07-18 10:57 | Outpatient (CLI) | payer MEDICAID ==
[2021-07-18 11:25] VITALS: BP 124/82
--- NOTE | 2021-07-18 11:47 | PROVIDER PROGRESS NOTE ---
- HPI Chief Complaint: Other Current : Vital Signs Temperature 37.1 C 07/18/21 11:19 Heart Rate 104 H 07/18/21 11:19 Respiratory Rate 16 07/18/21 11:19 Blood Pressure 124/82 H 07/18/21 11:19 O2 Saturation 100 07/18/21 11:19 Temperature 37.1 C 07/18/21 11:19 Heart Rate 104 H 07/18/21 11:19 Respiratory Rate 16 07/18/21 11:19 Blood Pressure 124/82 H 07/18/21 11:19 O2 Saturation 100 07/18/21 11:19 - Procedures OB Procedure Performed: NST Diagnosis/Indication for NST: Other NST Procedure: NST Procedure Start Time 09:41 Stop Time 10:07 - Plan Plan: Pt evaluated face to face Gladis is a 26yo @ 30.2wks gestation who presents to [facility] after being medically cleared through the ED secondary to chief complaint of itching. She states her itching is on the backs of her arms bilaterally and her thighs bilaterally. She reports it is worse at night. She has occasional itching at the sides of her stomach which is not overly bothersome to her. She denies itching on the palms of her hands or the soles of her feet. She was given IV benadryl and zyrtec in the ED prior to her arrival to [facility] and states her itching completely resolved. She denies bumps, rash, or exposures. Denies changes in soaps, lotions or detergents. She denies vaginal bleeding, leakage of fluid or contractions. She reports +FM. NST performed 07/18/2021 NST read 07/18/2021 NST reactive. FHR baseline 140, moderate variability, + accels, no decels No contractions appreciated via tocometry Vital signs WNL. Normocephalic, atraumatic No visible abnormalities on her skin. No rash present. Abdomen gravid, soft, nontender Bilateral LE's trace edema Mood is good. CBC and CMP completed in the ED and returned WNL. Bile acids collected to r/o cholestasis - pending. Will notify pt of results if abnormal. Pt released home with precautions. She has emergency contact number. She verbalized understanding and denies further questions or concerns at this time. FINAL DIAGNOSIS: Pruritis
== END 2021-07-18 11:50 | disposition home or self-care (01) ==
LOC: WFO 10:57 → FBP 10:59 → WFO 11:50
PROVIDERS: ATTEND Nurse Practitioner Obstetrics & Gynecology
DX: O99.713 Diseases of the skin and subcutaneous tissue complicating pregnancy, third trimester (principal); L29.9 Pruritus, unspecified; Z3A.30 30 weeks gestation of pregnancy
CPT/HCPCS: 59025; 99213

== ENCOUNTER 2021-08-11 16:00 | Outpatient (CLI) | payer MEDICAID ==
[2021-08-11 14:34] VITALS: BP 111/67
[2021-08-11 14:50] LABS: BASOPHILS # (AUTO) 0.1 10^3/uL (0.0-0.1); BASOPHILS % (AUTO) 0.5 %; EOSINOPHILS # (AUTO) 0.1 10^3/uL (0.0-0.7); EOSINOPHILS % (AUTO) 1.1 %; HCT - HEMATOCRIT 29.9 % (37.0-47.0); HGB - HEMOGLOBIN 9.7 g/dL (12.0-16.0); LYMPHOCYTES # (AUTO) 1.7 10^3/uL (1.5-3.5); LYMPHOCYTES % (AUTO) 12.6 %; MEAN CORPUSCULAR HEMOGLOBIN 28.6 pg (27.0-31.0); MEAN CORPUSCULAR HGB CONC 32.4 g/dL (32.0-36.0); MEAN CORPUSCULAR VOLUME 88.2 fL (81.0-99.0); MEAN PLATELET VOLUME 9.3 fL (7.9-10.8); MONOCYTES # (AUTO) 0.7 10^3/uL (0.0-1.0); MONOCYTES % (AUTO) 5.1 %; NEUTROPHILS # (AUTO) 10.4 10^3/uL (1.5-6.6); NEUTROPHILS % (AUTO) 78.1 %; PLT - PLATELET COUNT 284 10^3/uL (130-450); RED BLOOD COUNT 3.39 10^6/uL (4.20-5.40); RED CELL DISTRIBUTION WIDTH 13.9 % (12.0-15.0); WHITE BLOOD COUNT 13.3 x10^3/uL (4.8-10.8)
[2021-08-11 15:02] LABS: ALBUMIN 3.5 g/dL (3.2-5.5); ALKALINE PHOSPHATASE 87 IU/L (42-121); ALT ALANINE AMINOTRANSFERASE < 10 IU/L (10-60); AST ASPARTATE AMINOTRANSFERASE 10 IU/L (10-42); BILIRUBIN,TOTAL 0.4 mg/dL (0.2-1.0); BUN - BLOOD UREA NITROGEN 6 mg/dL (6-20); CALCIUM 8.8 mg/dL (8.5-10.3); CARBON DIOXIDE - CO2 20 mmol/L (21-32); CHLORIDE 102 mmol/L (101-111); CREATININE 0.6 mg/dL (0.4-1.0); GFR - MDRD 121 (>89); GLUCOSE 97 mg/dL (70-100); POTASSIUM 3.5 mmol/L (3.5-5.0); SODIUM 135 mmol/L (135-145); TOTAL PROTEIN 7.1 g/dL (6.7-8.2)
[~2021-08-11 16:00] MED LIST: FERRIC GLUCONATE 125 MG in SODIUM CHLORIDE 0.9% 100ML 100 ML IV ONE; SODIUM CHLORIDE FLUSH 0.9% 10 ML SYRINGE IVP PRN
--- NOTE | 2021-08-11 17:20 | PROVIDER PROGRESS NOTE ---
- HPI Chief Complaint: Other Current : Current EDU 09/24/21 Gestation 33 Weeks and 5 Days 2 Para 1 Vital Signs Temperature 37.1 C 08/11/21 14:33 Heart Rate 89 08/11/21 14:33 Respiratory Rate 18 08/11/21 14:33 Blood Pressure 111/67 08/11/21 14:33 Temperature 37.1 C 08/11/21 14:48 Heart Rate 89 08/11/21 14:33 Respiratory Rate 18 08/11/21 14:33 Blood Pressure 111/67 08/11/21 14:33 O2 Saturation - Procedures OB Procedure Performed: NST NST Procedure: NST Procedure Start Date 08/11/21 Start Time 14:25 Stop Time 11:45 Vibroacoustic Stimulation Used No Patient States Movement Yes - Plan Plan: Gladis presents to [facility] with c/o tunnel vision and blurry vision when she was standing up in the kitchen today. She states she then sat down but her vision continued to be affected and everything seemed blurry. She was concerned for gestational hypertension/preeclampsia although has never experienced this in the past. She has not eat today. She denies N/V. NST performed 08/11/2021 NST read 08/11/2021 NST reactive. FHR baseline 140s, moderate variability, + accels, no decels No contractions appreciated via tocometry CBC reveals anemia- Hgb 9.7/Hct 29.9 Glucose 97 AST 10 ALT <10 Na 135 K 3.5 BUN 6 IV iron infusion x once and will repeat CBC in 4 weeks. Plan: Pt was able to eat a sandwich and states she is feeling much better. Completed her IV iron infusion and feels reassured after our discussion that this is not preeclampsia as her BP has remained WNL and all of her labs are normal as well. Pt was released home with precautions. She denies further questions or concerns at this time. Routine care follow up. FINAL DIAGNOSIS: Anemia complicating
== END 2021-08-11 17:00 | disposition home or self-care (01) ==
LOC: WFO 16:00 → FBP 16:01 → WFO 17:00
PROVIDERS: ATTEND Nurse Practitioner Obstetrics & Gynecology
DX: O99.013 Anemia complicating pregnancy, third trimester (principal); Z3A.33 33 weeks gestation of pregnancy
CPT/HCPCS: 36415; 59025; 80053; 85025; 99213; J2916; 99212

== ENCOUNTER 2021-09-01 13:00 | Outpatient (CLI) | payer MEDICAID | END 2021-09-01 23:59 | disposition home or self-care (01) | LOC: LAB.WC 13:00 | PROVIDERS: ATTEND Nurse Practitioner Obstetrics & Gynecology | DX: Z36.85 Encounter for antenatal screening for Streptococcus B (principal) | CPT/HCPCS: 87797 ==

== ENCOUNTER 2021-09-17 07:30 | Inpatient (IN) | payer MEDICAID ==
[2021-09-17] MEDS ORDERED: LIDOCAINE-MPF 1% 30 ML VIAL ID PRN (07:43)
[2021-09-17] MEDS ORDERED: OXYTOCIN 10 UNIT/ML VIAL IM PRN (07:43)
[2021-09-17] MEDS ORDERED: SODIUM CHLORIDE FLUSH 0.9% 10 ML SYRINGE IVP PRN (07:43)
[2021-09-17] MEDS ORDERED: OXYTOCIN/SODIUM CHLORIDE 500 ML IV PRN (07:43)
[2021-09-17] MEDS ORDERED: METHYLERGONOVINE 0.2 MG/ML VIAL IM PRN (07:43)
[2021-09-17] MEDS ORDERED: CARBOPROST TROMETHAMINE 250 MCG/ML AMP IM PRN (07:43)
[2021-09-17] MEDS ORDERED: miSOPROStoL 200 MCG TABLET BC PRN (07:43)
[2021-09-17] MEDS ORDERED: TRANEXAMIC ACID IN NACL 1,000 MG/100 ML BAG IV PRN (07:43)
[2021-09-17] MEDS ORDERED: SODIUM CHLORIDE FLUSH 0.9% 10 ML SYRINGE IVP SCH (09:00)
[2021-09-17 09:23] LABS: BASOPHILS % (AUTO) 0.3 %; EOSINOPHILS # (AUTO) 0.1 10^3/uL (0.0-0.7); EOSINOPHILS % (AUTO) 0.8 %; HCT - HEMATOCRIT 31.5 % (37.0-47.0); LYMPHOCYTES # (AUTO) 1.4 10^3/uL (1.5-3.5); LYMPHOCYTES % (AUTO) 14.2 %; MEAN CORPUSCULAR HEMOGLOBIN 27.1 pg (27.0-31.0); MEAN CORPUSCULAR HGB CONC 31.7 g/dL (32.0-36.0); MEAN CORPUSCULAR VOLUME 85.4 fL (81.0-99.0); MEAN PLATELET VOLUME 9.6 fL (7.9-10.8); MONOCYTES # (AUTO) 0.6 10^3/uL (0.0-1.0); MONOCYTES % (AUTO) 6.4 %; NEUTROPHILS # (AUTO) 7.5 10^3/uL (1.5-6.6); NEUTROPHILS % (AUTO) 76.9 %; PLT - PLATELET COUNT 314 10^3/uL (130-450); RED BLOOD COUNT 3.69 10^6/uL (4.20-5.40); RED CELL DISTRIBUTION WIDTH 15.8 % (12.0-15.0); WHITE BLOOD COUNT 9.8 x10^3/uL (4.8-10.8)
--- NOTE | 2021-09-17 10:02 | HISTORY & PHYSICAL EXAMINATION ---
Admit History - Visit Reason Visit Reason: Other - : 2 Parity: 1 Premature: 0 Ectopic: 0 : 0 Care: positive: [facility] Risk/History: positive: None Complications This : positive: None Smoking Status: Never smoker - Mother's Labs Mother's Blood Type: positive: O Mother's RH: positive: Positive GBS: positive: Group B Step Negative Rubella Status: positive: Immune Meds/Allgy - Home Medications Home Medications: Ambulatory Orders Medication Instructions Recorded Confirmed Cetirizine [ZyrTEC] 10 mg PO BID #15 tablet 07/18/21 Ferrous Sulfate 300 mg PO DAILY 07/18/21 07/18/21 - Allergies Allergies/Adverse Reactions: Allergies Allergy/AdvReac Type Severity Reaction Status Date / Time No Known Drug Allergies Allergy Verified 07/18/21 09:18 Review of Systems - Constitutional Constitutional: denies: Fatigue, Fever, Chills, Malaise - Eyes Eyes: denies: Blurred vision, Spots in vision, Dipolpia - Cardiovascular Cariovascular: denies: Palpitations, Chest pain, Edema - Respiratory Respiratory: denies: Cough, SOB at rest - Gastrointestinal Gastrointestinal: denies: Constipation, Diarrhea, Change in bowel habits, Nausea, Vomiting - Integumentary Integumentary: denies: Rash, Pruritis - Neurological Neurological: denies: Headache - Psychiatric Psychiatric: reports: Anxiety Physical - Abdominal Exam Vital Signs: Temp Pulse Resp BP Pulse Ox 36.4 C L 92 18 123/72 97 09/17/21 08:16 09/17/21 08:16 09/17/21 08:16 09/17/21 08:16 09/17/21 08:16 Contraction Frequency (min/apart): 5-10 Contraction Intensity: positive: Mild Uterine Resting Tone: positive: Soft - Monitoring Heart Rate Baseline: 150 Strip Review: positive: Category I - Presentation Presentation: positive: Vertex - Vaginal Exam Membranes: positive: Membranes intact Dilation (in cm): 3-4 Effacement (%): 50 Station: positive: -2 Cervical Position: positive: Posterior - Speculum Exam Speculum Exam Performed: positive: No Plan for Labor - Plan For Labor I expect patient to be DC'd or transferred within 96 hours.: Yes Plan for Labor: Gladis is a 26yo @ 39.0wks gestation by LMP c/w 8.3wk U/S who presents to [facility] for elective induction labor. She has a hx of preciptious delivery and nearly delivered in the care with her first baby. She is hoping to have a more controlled and less chaotic labor and delivery experience this time. She denies vaginal bleeding or leakage of fluid. She reports intermittent BH contractions but nothing overly uncomfortable. She reports +FM. She states she has been feeling very anxious and is nervous to feel that intense pain with contractions again. Was teary last night and just feels nervous. Her [facility] is supportive at the bedside. She has been a patient of [facility] for the duration of her which has remained uncomplicated with the exception of anemia for which she is taking a daily iron supplement and also received 1 iron infusion for at 34wks gestation. She will be admitted to [facility] for AROM followed by expectant management. Her mood is good although anxious (she is anxious at baseline). Dating criteria: LMP 12/24/2020 Initial U/S @ 8.3wks c/w LMP dating Serial exams - agree OB Hx: G1: 12/24/2017; 39wk , unmedicated delivery, 6hr labor, Female, 6lb3oz G2: current Medications: PNV, Ferrous sulfate Allergies: NKDA PMHx: Anxiety Surgical Hx: Social Hx: Never smoker, no ETOH or IVDA. [facility]. Family Hx: course: LMP: 12/24/2020 GIANCARLO by LMP:09/30/2021 Initial U/S:02/15/2021 @ 8w3d GIANCARLO by Initial US 09/24/2021 FINAL GIANCARLO: 09/24/2021 O pos/Rubella imm VZV:imm Genetic testing: declines FAS: WNL. Fundal placenta without previa. 3VC. Size c/w dating (67%tile). Marginal placental cord insertion - f/u suggested in the third trimester to look at the umbilical cord F/u 07/18/2021 for marginal cord insertion: cord insertion is 2.2cm from placental edge. UpToDate defines marginal insertion as 2cm or less. Candidate for continuous monitoring in labor, otherwise continue with routine management. Glucola-120 Influenza: given 08/17 TDAP- given 08/17 Covid vaccine: #1 03/2021, contracted covid 04/2021 - #2 07/2021 GBS @ 36.5wks-Negative HSV: denies self and partner Breast pump Rx 07/21 MOD: . unmedicated delivery, FOB [facility], Daughter Tara (3) - precipitous delivery; It's a GIRL! Randall pp contraception: condoms vs vasectomy pap: 02/25/2021-nilm Physical Exam: Normocephalic, atraumatic Heart RRR w/o M/G/R LUngs CTAB Abdomen gravid, soft, nontender FHR baseline 150s, moderate variability, + accels, no decels Contractions palpate mild every 5-10 minutes with soft resting tone. Pt appreciates contractions as mild, hayde meek contractions. SVE 3-4/50/-2, posterior. Vertex. AROM occurred and was noted to be a small amount of meconium stained amniotic fluid. Bilateral LE's trace edema Mood is anxious. supportive at the bedside. Assessment: 26yo @ 39.0wks gestation by LMP c/w 8.3wk U/S GBS neg FHR Category I Hx precipitous delivery Plan: Continuous monitoring Expectant management x 4 hours Jacuzzi PRN. Nitrous oxide PRN. Encouraged ambulation and position changes. Respiratory therapy and graduate civil engineer donkey doctor notified of particulate meconium at AROM. Anticipate Pt verbalized understanding and agrees to above plan. She denies further questions or concerns at this time.
[2021-09-17] MEDS: LACTATED RINGERS 1,000 ML IV SCH ×3 (11:30→16:31)
[2021-09-17] MEDS ORDERED: ROPIVACAINE 0.2% 200 MG/100 ML BAG EP ONE (12:06)
--- NOTE | 2021-09-17 12:17 | PROVIDER PROGRESS NOTE ---
Labor Progress Note - Uterine Monitoring Uterine Monitoring Mode: positive: External toco Contraction Frequency (min/apart): 3-4 Contraction Intensity: positive: Moderate Uterine Resting Tone: positive: Soft - Monitoring Monitor Mode: positive: External ultrasound Heart Rate Baseline: 150 Heart Rate Variability: positive: Moderate (6-25 bmp) Accelerations: positive: Present, 15x15 Decelerations: positive: None Strip Review: positive: Category I - Vaginal Exam Dilation (in cm): 5 Effacement (%): 70 Station: -1 Cervical Position: Posterior - Labor Progress Note Labor Progress Note/Additional Text: S: Starting to feel more uncomfortable with contractions. Feels they are tolerable now but is really questioning if she wants an epidural or not. She feels anxiety related to the trauma of her last delivery secondary to her hx of precipitous delivery. After discussing with myself, her partner, and anesthesia providers, she feels she does want to get an epidural since overall it will decrease her anxiety. O: FHR baseline 150s, moderate variability, + accels, no decels Contractions palpate moderate every 3-5 minutes with soft resting tone SVE 5/75/-1, posterior, vertex. AROM x 4 hours A: 26yo @ 39.0wks gestation by LMP c/w 8.3wk U/S Early labor GBS neg FHR Category I Hx precipitous delivery P: Continue expectant management Anesthesia notified to place epidural per pt request. Anticipate . Pt verbalized understanding and agrees to above plan. She denies further questions or concerns at this time.
[2021-09-17] MEDS ORDERED: ePHEDrine 50 MG/ML VIAL IVP ONE (13:15)
[2021-09-17] MEDS ORDERED: ONDANSETRON 4 MG/2 ML VIAL IVP PRN ×2 (13:17→13:20)
[2021-09-17] MEDS ORDERED: NALBUPHINE 10 MG/ML AMP IVP PRN (13:20)
[2021-09-17] MEDS ORDERED: diphenhydrAMINE INJ 50 MG/ML VIAL IVP PRN (13:20)
[2021-09-17] MEDS ORDERED: METOCLOPRAMIDE 10 MG/2 ML VIAL IVP PRN (13:20)
[2021-09-17] MEDS ORDERED: NALOXONE 0.4 MG/ML VIAL IVP PRN (13:20)
[2021-09-17] MEDS ORDERED: ePHEDrine 50 MG/ML VIAL IVP PRN (13:20)
[2021-09-17] MEDS ORDERED: ROPIVACAINE 0.2% 200 MG/100 ML BAG EP PRN (13:20)
--- NOTE | 2021-09-17 13:25 | ANESTHESIA ---
Pre-Anesthesia VS, & Labs - Diagnosis labor induction - Procedure labor epidural Vital Signs: Temp Pulse Resp BP Pulse Ox 37.0 C 95 18 117/77 100 09/17/21 10:00 09/17/21 10:00 09/17/21 10:00 09/17/21 10:00 09/17/21 10:00 Height: 5 ft 4 in Weight (kg): 79.469 kg Body Mass Index: 30.0 BMI Classification: Obese - NPO Other - Is Patient ?: Yes - Lab Results Current Lab Results: Laboratory Tests 09/17/21 09:17: Blood Type O POSITIVE, Antibody Screen NEGATIVE 09/17/21 09:17: WBC 9.8, RBC 3.69 L, Hgb 10.0 L, Hct 31.5 L, MCV 85.4, MCH 27.1, MCHC 31.7 L, RDW 15.8 H, Plt Count 314, MPV 9.6, Neut # (Auto) 7.5 H, Lymph # (Auto) 1.4 L, Duchesne # (Auto) 0.6, Eos # (Auto) 0.1, Baso # (Auto) 0.0, Absolute Nucleated RBC 0.00, Nucleated RBC % 0.0 Fish Bones: 09/17/21 09:17 Home Medications and Allergies Active Medications Carboprost Tromethamine (Carboprost Tromethamine 250 Mcg/Ml Amp) 250 mcg IM Q1 5M PRN PRN Reason: Step 4: Hemorrhage protocol Stop: 09/22/21 07:44 Diphenhydramine HCl (Diphenhydramine Inj 50 Mg/Ml Vial) 12.5 - 25 mg IVP Q6HR PRN PRN Reason: ITCHING Ephedrine Sulfate (Ephedrine 50 Mg/Ml Vial) 5 mg IVP Q5M PRN PRN Reason: For SBP<100;give until SBP>100 Oxytocin/Sodium Chloride (Pitocin/Sodium Chloride) 500 mls @ 999 mls/hr IV PRN PRN; Protocol PRN Reason: POST- HEMORR PREVENTION Stop: 09/22/21 07:44 Tranexamic Acid (Tranexamic 1,000 Mg/100ml-Nacl) 1,000 mg in 100 mls @ 600 mls/hr IV .ONCE PRN PRN Reason: EBL >1200mL and within 3hr Stop: 09/22/21 07:44 Lactated Ringer's (Lr) 1,000 mls @ 100 mls/hr IV .Q10H SAMANTA Last Admin: 09/17/21 11:30 Dose: 250 mls/hr Documented by: Ropivacaine (Naropin 0.2%) 200 mg in 100 mls @ 0 mls/hr EP PRN PRN; Protocol PRN Reason: PAIN Lidocaine HCl (Lidocaine-Mpf 1% 30 Ml Vial) 30 ml ID .ONCE PRN PRN Reason: PERINEAL REPAIR Stop: 09/22/21 07:44 Methylergonovine Maleate (Methylergonovine 0.2 Mg/Ml Vial) 0.2 mg IM .ONCE PRN PRN Reason: Step 2: Hemorrhage protocol Stop: 09/22/21 07:44 Metoclopramide HCl (Metoclopramide 10 Mg/2 Ml Vial) 10 mg IVP Q6HR PRN PRN Reason: Nausea / Vomiting Misoprostol (Misoprostol 200 Mcg Tablet) 800 mcg BC .ONCE PRN PRN Reason: Step 3: Hemorrhage protocol Stop: 09/22/21 07:44 Nalbuphine HCl (Nalbuphine 10 Mg/Ml Amp) 2.5 - 5 mg IVP Q4H PRN PRN Reason: ITCHING Naloxone HCl (Naloxone 0.4 Mg/Ml Vial) 0.1 mg IVP Q2M PRN PRN Reason: RR<8 Ondansetron HCl (Ondansetron 4 Mg/2 Ml Vial) 4 mg IVP Q4HR PRN PRN Reason: Nausea / Vomiting Last Admin: 09/17/21 13:22 Dose: 4 mg Documented by: Ondansetron HCl (Ondansetron 4 Mg/2 Ml Vial) 4 mg IVP Q6HR PRN PRN Reason: Nausea / Vomiting Oxytocin (Oxytocin 10 Unit/Ml Vial) 10 unit IM .ONCE PRN PRN Reason: Step one: If no IV access Stop: 09/22/21 07:44 Sodium Chloride (Sodium Chloride Flush 0.9% 10 Ml Syringe) 10 ml IVP 0100,0900,1700 SAMANTA Sodium Chloride (Sodium Chloride Flush 0.9% 10 Ml Syringe) 10 ml IVP PRN PRN PRN Reason: NEEDED PER PROVIDER ORDERS Ferrous Sulfate 300 mg PO DAILY 07/18/21 Allergies/Adverse Reactions: Allergies Allergy/AdvReac Type Severity Reaction Status Date / Time No Known Drug Allergies Allergy Verified 07/18/21 09:18 Anes History & Medical History - Anesthetic History Anesthesia Complications: reports: No previous complications - Medical History Cardiovascular: reports: None Pulmonary: reports: None Gastrointestinal: reports: None Smoking Status: Never smoker History of Cancer?: No - Obstetrical History : 2 Parity: 1 Events: reports: None Complications: reports: None Exam General: Alert, Oriented x3 Dental: WNL Mallampati classification: II Respiratory: Lungs clear Cardiovascular: Regular rate Plan Anesthesia Type: Epidural Consent for Procedure(s) Verified and Reviewed: Yes Code Status: Attempt Resuscitation ASA classification: 2-Mild systemic disease Is this case an emergency?: No
--- NOTE | 2021-09-17 13:52 | PROVIDER PROGRESS NOTE ---
Labor Progress Note - Uterine Monitoring Uterine Monitoring Mode: positive: External toco Contraction Frequency (min/apart): difficult to trace Contraction Intensity: positive: Moderate Uterine Resting Tone: positive: Soft - Monitoring Monitor Mode: positive: External ultrasound Heart Rate Baseline: 180 Heart Rate Variability: positive: Moderate (6-25 bmp) Accelerations: positive: Absent Decelerations: positive: None Strip Review: positive: Category II - Labor Progress Note Labor Progress Note/Additional Text: S: Feeling comfortable with epidural. Had an episode of hypotension (60/30) with anesthesia present in the room and pt was treated with ephedrine. She states she feels better but she just feels slightly weak following the hypotensive episode. Continues to experience anxiety but overall coping well. Her is supportive at the bedside. O: FHR baseline 180 at present. Moderate variability with previously minimal variability. (T 98.0) No accels, no decels SVE deferred A: 26yo @ 39.0wks gestation by LMP c/w 8.3wk U/S Early labor AROM x 5.5hrs - particulate meconium GBS neg FHR Category II - overall reassuring P: Continue expectant management Continue IV fluid bolus Continuous monitoring Encouraged position changes in bed as tolerated Denitrator Operator notified to present at delivery secondary to meconium. Anticipate .
--- NOTE | 2021-09-17 15:18 | CONSULTATION NOTE ---
Consultation Report: Epidural restarted after patient evaluation. Sensory level at t-10, able to move B LEs, no c/o nausea, no pain with contractions. Pump restarted @8ccQ50 mins. VSS 10mins after bolus, no nausea. patient.
--- NOTE | 2021-09-17 16:46 | PROVIDER PROGRESS NOTE ---
Labor Progress Note - Uterine Monitoring Uterine Monitoring Mode: positive: External toco Contraction Frequency (min/apart): 5-6 Contraction Intensity: positive: Mild to moderate Uterine Resting Tone: positive: Soft - Monitoring Monitor Mode: positive: External ultrasound Heart Rate Baseline: 165 Heart Rate Variability: positive: Moderate (6-25 bmp) Accelerations: positive: Present, 15x15 Decelerations: positive: None Strip Review: positive: Category II - Vaginal Exam Dilation (in cm): 5 Effacement (%): 75 Station: 0 Cervical Position: Midposition - Labor Progress Note Labor Progress Note/Additional Text: S: Feeling comfortable with epidural. Really hoping she can have a baby soon. Her mood is good and she states she is feeling much more relaxed. O: FHR baseline 165, moderate variability, No accels, no decels Contractions palpate mild to moderate every 5-6 minutes with soft resting tone SVE 5/75/0. Vertex A: 26yo @ 39.0wks gestation by LMP c/w 8.3wk U/S Early labor FHR Category II secondary to tachycardia GBS neg P: Initiate pitocin for labor augmentation with titration per protocol. Continuous monitoring Maintain epidural for labor augmentation Anticipate . Pt verbalized understanding and agrees to above plan. She denies further questions or concerns at this time.
[2021-09-17] MEDS ORDERED: OXYTOCIN/SODIUM CHLORIDE 500 ML IV SCH (17:00)
[2021-09-17] MEDS ORDERED: LIDOCAINE-MPF 2% 5 ML VIAL ONE (17:42)
[2021-09-17] MEDS ORDERED: HYDROCORTISONE 1% CREAM 28 GM TUBE PR PRN (20:38)
[2021-09-17] MEDS ORDERED: WITCH HAZEL/GLYCERIN 1 PAD TOP PRN (20:38)
--- NOTE | 2021-09-17 20:54 | DELIVERY NOTE ---
Delivery Note - Labor Labor: positive: Augmented by oxytocin, Induced by ARM - Delivery Method Infant Delivery Method: positive: Spontaneous vaginal delivery - Presentation Presentation: positive: Vertex, TAMRA - left occiput anterior - Nuchal Cord Nuchal Cord: positive: Present, Reduced - Episiotomy Type Episiotomy Type: positive: None - Laceration Laceration: positive: 1st degree, Vaginal - Suture Suture Type: positive: Vicryl Suture Size: positive: 3-0 - Delivery Outcome Delivery Outcome: positive: Livebirth - [place] : positive: Placed in direct skin contact with mother, Stimulated, Warmed, Erwin used sex: positive: Female - Cord Cord: positive: 3 vessels - Placenta Placenta: positive: Intact, Spontaneous - Estimated Blood Loss Estimated Blood Loss (in cc): 150 - Post Delivery Events Post Delivery Events: positive: No post delivery events - Delivery Comments (Free Text/Narrative) Delivery Comments (Free Text/Narrative): Labor: This 26yo @ 39.0wks gestation by LMP c/w 8.3wk U/S presented on 09/17/2021 for elective induction of labor. Cervix was 3-4/50/-2, posterior and vertex. FHR pattern demonstrated Category II pattern throughout labor secondary to tachycardia. Pt remained afebrile through duration of labor. AROM occurred at 0831 and was noted to be a small amount of meconium stained amniotic fluid. Epidural placed per maternal request. Pitocin initiated for labor augmentation for a maximum infusion rate of 3mU/mL. Pt progressed to c/c/+1 @ 1934. : Normal of 8lb 6.8oz viable female infant on 09/17/2021 @ 1952. Nuchal cord x 1 was easily reduced. The was placed on maternal abdomen, stimulated, dried, and placed skin to skin. Apgars were 8/9 at 1 and 5 minutes respectively. Pitocin administered via IV for hemostasis. The umbilical cord was allowed to stop pulsating at which time it was doubly clamped by CNM and cut by FOB. Cord blood was obtained. 3VC. Fundal massage and gentle cord traction applied for active management of the third stage. Placenta delivered spontaneously and intact @ 1956. EBL 150mL. Fourth stage: Uterine fundus firm and there is no excessive bleeding. The perineum, vagina, and cervix were inspected and noted to have a 1st degree vaginal laceration which was repaired using a 3-[address]-1 needle in standard fashion and under sterile conditions. Vaginal examination following repair was done. Tissues well approximated. initiated. Family bonding well. Both mother and baby were left in stable condition.
[2021-09-17] MEDS: DOCUSATE SODIUM 100 MG CAPSULE PO SCH (21:32)
[2021-09-17] MEDS: ACETAMINOPHEN 500 MG TABLET PO SCH (21:32)
[2021-09-17] MEDS: IBUPROFEN 800 MG TABLET PO SCH (21:32)
[2021-09-18] MEDS: ACETAMINOPHEN 500 MG TABLET PO SCH ×2 (06:05→13:54)
[2021-09-18] MEDS: IBUPROFEN 800 MG TABLET PO SCH ×3 (06:05→18:13)
[2021-09-18] MEDS: DOCUSATE SODIUM 100 MG CAPSULE PO SCH ×2 (08:34→11:13)
--- NOTE | 2021-09-18 10:40 | Discharge Plan ---
Discharge Plan Problem Reviewed?: Yes Disposition: Home, Self Care Condition: Good Diet: Regular Activity Restrictions: No Restrictions Shower Restrictions: No Driving Restrictions: No Weight Bearing: Full Weight Instruction Topics: Vaginal After No Smoking: If you smoke, Please STOP! Call for help. Follow-up with: Shahla West CNM, ARNP [Provider Admit Priv/Credential] - 1 Week
--- NOTE | 2021-09-18 11:01 | DISCHARGE SUMMARY ---
Discharge Summary Condition at Discharge: Good Discharge Disposition: 01 Home, Self Care - HOSPITAL COURSE Hospital Course: Date of Admission: 09/17/2021 Date of Discharge: 09/18/2021 Diagnosis on Admission: 1. 26yo @ 39.0wks gestation by LMP c/w 8.3wk U/S 2. GBS neg 3. FHR Category I 4. Hx precipitous delivery Diagnosis on Discharge: 1. 26yo PPD#1 s/p TSVD viable male infant 2. 1st degree laceration -intact 3. 4. Normal recovery Brief History: She is a patient of [facility] who presented on 09/17/2021 @ 39.0wks gestation by LMP c/w 8.3wk U/S for elective induction of labor secondary to her history of precipitous delivery and maternal anxiety. AROM occurred and was noted to be a moderate amount of meconium stained amniotic fluid. Epidural per maternal request. Pitocin initiated for labor augmentation and she progressed to spontaneously deliver a viable female on 09/17/2021 @ 1952. Apgars were 8/9 at 1 and 5 minutes respectively. EBL 150mL. 1st degree perineal laceration repaired in standard fashion and under sterile conditions. She has been doing well in her course. She is ambulating and tolerati ng a regular diet. She is urinating without difficulty. Her pain is well controlled with oral medications. She is without difficulty and bonding well with baby. They are hoping to be discharged home this evening. She has been given instructions to continue taking her vitamin while and to continue taking ibuprofen and tylenol OTC as needed for pain management. She intends to f/u with myself at [facility] in 1 week for routine visit or sooner if needed. She has been given precautions to call any worsening fevers, chills, abdominal pain, increased vaginal bleeding or foul smelling vaginal lochia. Physical Exam: Normocephalic, atraumatic, heart RRR w/o M/G/R, lungs CTAB, abdomen soft and nontender with fundus firm and U-1, perineum intact, light lochia rubra, bilateral LE's trace edema. Mood is good. - ALLERGIES Allergies/Adverse Reactions: Allergies Allergy/AdvReac Type Severity Reaction Status Date / Time No Known Drug Allergies Allergy Verified 07/18/21 09:18 - MEDICATIONS Home Medications: Ambulatory Orders Medication Instructions Recorded Confirmed Cetirizine [ZyrTEC] 10 mg PO BID #15 tablet 07/18/21 Ferrous Sulfate 300 mg PO DAILY 07/18/21 07/18/21 - LABS Result Diagrams: 09/17/21 09:17
[2021-09-18 16:07] VITALS: BP 106/68
== END 2021-09-18 19:03 | disposition home or self-care (01) | DRG 807 ==
LOC: WFO 07:30 → FBP 07:34 → WFO 07:42 → FBP 07:43 → OBSVTOIN 13:45
PROVIDERS: ADMIT Nurse Practitioner Obstetrics & Gynecology; ATTEND Nurse Practitioner Obstetrics & Gynecology
PROC: 10E0XZZ Delivery of Products of Conception, External Approach (ICD-10-PCS; principal; 2021-09-17)
PROC: 10907ZC Drainage of Amniotic Fluid, Therapeutic from Products of Conception, Via Natural or Artificial Opening (ICD-10-PCS; 2021-09-17)
PROC: 0HQ9XZZ Repair Perineum Skin, External Approach (ICD-10-PCS; 2021-09-17)
DX: O70.0 First degree perineal laceration during delivery (principal); Z37.0 Single live birth; O69.81X0 Labor and delivery complicated by cord around neck, without compression, not applicable or unspecified; O77.0 Labor and delivery complicated by meconium in amniotic fluid; Z3A.39 39 weeks gestation of pregnancy; Z87.59 Personal history of other complications of pregnancy, childbirth and the puerperium; O76 Abnormality in fetal heart rate and rhythm complicating labor and delivery; O99.344 Other mental disorders complicating childbirth; F41.9 Anxiety disorder, unspecified; O75.89 Other specified complications of labor and delivery; I95.9 Hypotension, unspecified
CPT/HCPCS: 36415; 85025; 86850; 86900; 86901; 96374; A9270; G0378; J7120